=== PATIENT | female | born 1955 | race Caucasian/White ===

== ENCOUNTER → 2016-12-17 | Outpatient (CLI) | payer BC ==
[~2016-12-17] MED LIST: C250T; ESTR1TAB24; MULT1TAB63; NF-METANX; NFCORC1000; OMG1KC; THYR15TA PO
--- OUTSIDE RECORDS SUMMARY | 2016-12-17 10:48 | XMS REPORT | Continuity of Care Document ---
Author Author [facility] Organization [facility] Address Unknown Phone Unavailable Care Team Providers Care Moving Worker Name Role Phone JENNA BRUNSON MD PCP Insurance Providers Payer Name Policy Number Subscriber Name Relationship [facility] [id number] Wendy Abbott 19 Self / Same As Patient Advance Directives Directive Response Recorded Date/Time Advance Directives Yes 08/23/08 8:59am Organ Donor Yes 08/23/08 8:59am Problems No problem information available. Medications Current Home Medications Medication Dose Units Route Directions Days/Qty Instructions Start Date Thyroid,Pork 15 Mg 15 Mg Oral Daily 07/21/11 Estradiol 1 Mg 0.5 Mg 07/21/11 Past Home Medications Medication Directions Ordered Status Multivitamins 1 Ea Tablet, 08/23/08 Discontinued Calcium 1,000 Mg Capsule, 08/23/08 Discontinued Fish Oil 1,000 Mg Cap, 08/23/08 Discontinued Vitamin B Complex/Folic Acid 1 Ea Tablet, 08/23/08 Discontinued Ascorbic Acid 250 Mg Tab, 08/23/08 Discontinued Social History Social History Problem Response Recorded Date/Time Recent Foreign Travel N SEE [place] 02/11/2016 8:50am Hospital Discharge Instructions No hospital discharge instructions. Plan of Care Prescriptions See Medication Section Functional Status No functional status results. Allergies, Adverse Reactions, Alerts Allergen Type Severity Reaction Status Last Updated Tetanus Vaccines & Toxoid ([id number]) Allergy Mild Active 08/23/08 iodine ([id number]) Allergy Severe Active 08/23/08 FEATHER PILLOWS Allergy Mild Active 08/23/08 Immunizations No immunization records. Vital Signs No known vital signs results. Results Laboratory Results Test Name Result Units Flags Reference Collection Date/Time Result Date/ Time Comments White Blood Count 6.0 10^3/uL 4.3-11.0 02/11/2016 8:57am 02/11/2016 9: 06am Red Blood Count 4.63 10^6/uL 4.35-5.85 02/11/2016 8:57am 02/11/2016 9: 06am Hemoglobin 13.0 G/DL 11.5-16.0 02/11/2016 8:57am 02/11/2016 9:06am Hematocrit 40 % 35-52 02/11/2016 8:57am 02/11/2016 9:06am Mean Corpuscular Volume 87 FL 80-99 02/11/2016 8:57am 02/11/2016 9: 06am Mean Corpuscular Hemoglobin 28 PG 25-34 02/11/2016 8:57am 02/11/2016 9: 06am Mean Corpuscular Hemoglobin Concent 32 G/DL 32-36 02/11/2016 8:57am 9:06am Red Cell Distribution Width 14.1 % 10.0-14.5 02/11/2016 8:57am 2015 9:06am Platelet Count 294 10^3/uL 130-400 02/11/2016 8:57am 02/11/2016 9:06am Mean Platelet Volume 9.9 FL 7.4-10.4 02/11/2016 8:57am 02/11/2016 9: 06am Neutrophils (%) (Auto) 64 % 42-75 02/11/2016 8:57am 02/11/2016 9:06am Lymphocytes (%) (Auto) 28 % 12-44 02/11/2016 8:57am 02/11/2016 9:06am Monocytes (%) (Auto) 6 % 0-12 02/11/2016 8:57am 02/11/2016 9:06am Eosinophils (%) (Auto) 3 % 0-10 02/11/2016 8:57am 02/11/2016 9:06am Basophils (%) (Auto) 0 % 0-10 02/11/2016 8:57am 02/11/2016 9:06am Neutrophils # (Auto) 3.8 X 10^3 1.8-7.8 02/11/2016 8:57am 02/11/2016 9: 06am Lymphocytes # (Auto) 1.7 X 10^3 1.0-4.0 02/11/2016 8:57am 02/11/2016 9: 06am Monocytes # (Auto) 0.4 X 10^3 0.0-1.0 02/11/2016 8:57am 02/11/2016 9: 06am Eosinophils # (Auto) 0.2 10^3/uL 0.0-0.3 02/11/2016 8:57am 02/11/2016 9 :06am Basophils # (Auto) 0.0 10^3/uL 0.0-0.1 02/11/2016 8:57am 02/11/2016 9: 06am Sodium Level 139 MMOL/L 135-145 02/11/2016 8:57am 02/11/2016 9:51am Potassium Level 4.2 MMOL/L 3.6-5.0 02/11/2016 8:57am 02/11/2016 9:51am Chloride Level 104 MMOL/L 98-107 02/11/2016 8:57am 02/11/2016 9:51am Carbon Dioxide Level 27 MMOL/L 21-32 02/11/2016 8:57am 02/11/2016 9: 51am Anion Gap 8 MMOL/L 5-14 02/11/2016 8:57am 02/11/2016 9:51am Blood Urea Nitrogen 18 MG/DL 7-18 02/11/2016 8:57am 02/11/2016 9:51am Creatinine 0.71 MG/DL 0.60-1.30 02/11/2016 8:57am 02/11/2016 9:51am BUN/Creatinine Ratio 25 02/11/2016 8:57am 02/11/2016 9:51am Estimat Glomerular Filtration Rate > 60 02/11/2016 8:57am 2015 9:51am GFR INTERPRETIVE DATA UNITS FOR ESTIMATED GFR (eGFR): mL/min/1.73 M2 REFERENCE RANGE FOR ESTIMATED GFR (eGFR) eGFR NORMAL eGFR >60 MODERATELY DECREASED eGFR 30-59 SEVERLY DECREASED eGFR 15-29 KIDNEY FAILURE <15 (OR DIALYSIS) Glucose Level 87 MG/DL 70-105 02/11/2016 8:57am 02/11/2016 9:51am Calcium Level 9.4 MG/DL 8.5-10.1 02/11/2016 8:57am 02/11/2016 9:51am Total Bilirubin 0.3 MG/DL 0.1-1.0 02/11/2016 8:57am 02/11/2016 9:51am Alkaline Phosphatase 76 U/L 40-136 02/11/2016 8:57am 02/11/2016 9:51am Aspartate Amino Transf (AST/SGOT) 17 U/L 5-34 02/11/2016 8:57am 2015 9:51am Alanine Aminotransferase (ALT/SGPT) 14 U/L 0-55 02/11/2016 8:57am 02/10 9:51am Total Protein 7.3 G/DL 6.4-8.2 02/11/2016 8:57am 02/11/2016 9:51am Albumin 4.2 G/DL 3.2-4.5 02/11/2016 8:57am 02/11/2016 9:51am Thyroid Stimulating Hormone (TSH) 3.18 UIU/ML 0.35-4.94 02/11/2016 8: 57am 02/11/2016 10:17am Procedures No known history of procedures. Encounters Encounter Location Arrival/Admit Date Discharge/Depart Date Attending Provider Discharged Recurring [facility] 02/11/16 8:51am 11:59pm SRINIVAS WYMAN MD
--- NOTE | 2016-12-17 17:10 | Diagnostic Imaging Report ---
PROCEDURE: US thyroid. TECHNIQUE: Multiple real-time grayscale images were obtained of the thyroid in various projections. INDICATION: Thyromegaly. History of Darnell thyroiditis. FINDINGS: The right thyroid lobe is 5.5 x 2.1 x 1.8 cm. The left lobe is 5.4 x 1.8 x 1.8 cm. The thyroid parenchyma is heterogenous with increased vascularity seen. No focal underlying mass is noted. IMPRESSION: Hypervascular heterogenous enlarged thyroid gland with no discrete focal lesion, compatible with thyroiditis. Dictated by: Dictated on workstation # [id number]
== END ==
LOC: RAD 10:45
PROVIDERS: ATTEND Family Medicine
DX: E01.0 Iodine-deficiency related diffuse (endemic) goiter (principal); E06.3 Autoimmune thyroiditis
CPT/HCPCS: 76536

== ENCOUNTER 2017-02-09 08:34 | Outpatient (RCR) | payer BC ==
--- OUTSIDE RECORDS SUMMARY | 2017-02-09 08:38 | XMS REPORT | Continuity of Care Document ---
Author Author [facility] Organization [facility] Address Unknown Phone Unavailable Care Team Providers Care Ironer Sock Name Role Phone JENNA BRUNSON MD PCP Insurance Providers Payer Name Policy Number Subscriber Name Relationship [facility] [id number] Wendy Abbott 19 Self / Same As [...] Status Last Updated Tetanus Vaccines & Toxoid ([id number]) Allergy Mild Active 08/23/08 iodine ([id number]) Allergy Severe Active 08/23/08 FEATHER PILLOWS Allergy [...] Discharge/Depart Date Attending Provider Discharged Recurring [facility] 02/11/16 8:51am 11:59pm SRINIVAS WYMAN MD
[2017-02-09 08:53] LABS: BASOPHILS % (AUTO) 1 % (0-10); EOSINOPHILS # (AUTO) 0.2 10^3/uL (0.0-0.3); EOSINOPHILS % (AUTO) 3 % (0-10); LYMPHOCYTES # (AUTO) 1.8 X 10^3 (1.0-4.0); LYMPHOCYTES % (AUTO) 28 % (12-44); MEAN CORPUSCULAR HEMOGLOBIN 28 PG (25-34); MEAN CORPUSCULAR HGB CONC 32 G/DL (32-36); MEAN CORPUSCULAR VOLUME 88 FL (80-99); MONOCYTES # (AUTO) 0.5 X 10^3 (0.0-1.0); MONOCYTES % (AUTO) 7 % (0-12); NEUTROPHILS # (AUTO) 4.2 X 10^3 (1.8-7.8); NEUTROPHILS % (AUTO) 63 % (42-75); PLATELET COUNT 287 10^3/uL (130-400); RED BLOOD COUNT 4.68 10^6/uL (4.35-5.85); RED CELL DISTRIBUTION WIDTH 14.8 % (10.0-14.5); WHITE BLOOD COUNT 6.6 10^3/uL (4.3-11.0)
[2017-02-09 09:28] LABS: ALANINE AMINOTRANSFERASE 15 U/L (0-55); ANION GAP 10 MMOL/L (5-14); ASPARTATE AMINO TRANSFERASE 20 U/L (5-34); BILIRUBIN,TOTAL 0.4 MG/DL (0.1-1.0); BLOOD UREA NITROGEN 15 MG/DL (7-18); BUN/CREATININE RATIO 19; CALCIUM 9.4 MG/DL (8.5-10.1); CARBON DIOXIDE 26 MMOL/L (21-32); CHLORIDE 105 MMOL/L (98-107); GFR ESTIMATED > 60; GLUCOSE 94 MG/DL (70-105); POTASSIUM 4.8 MMOL/L (3.6-5.0); SODIUM 141 MMOL/L (135-145); TOTAL PROTEIN 7.1 G/DL (6.4-8.2)
[2017-02-09 09:52] LABS: THYROID STIMULATING HORMONE 5.62 UIU/ML (0.35-4.94)
== END 2017-05-10 | disposition home or self-care (01) ==
LOC: ONC 08:34
PROVIDERS: ATTEND Internal Medicine Hematology & Oncology
DX: Z08 Encounter for follow-up examination after completed treatment for malignant neoplasm (principal); Z85.43 Personal history of malignant neoplasm of ovary; E06.3 Autoimmune thyroiditis; Z90.710 Acquired absence of both cervix and uterus; Z79.899 Other long term (current) drug therapy
CPT/HCPCS: 36415; 80053; 84443; 85025; 86304; 99213

== ENCOUNTER → 2017-07-16 | Outpatient (CLI) | payer BC ==
--- NOTE | 2017-07-16 19:56 | Diagnostic Imaging Report ---
INDICATION: Screening for osteoporosis. EXAMINATION: DEXA scan. COMPARISON: This study was compared to the prior exam of 05/10/09. FINDINGS: The bone mineral density of the hips and spine was measured. The T-score for the spine is -1.6. On the prior exam the T-score was -1.9. The T-score for the left hip is -1.8 and for the right hip -2.1. On the previous study the respective T-scores were -1.6 and -1.7. IMPRESSION: There has been a decrease in the bone mineral density of the hips in the interval since the prior exam but there has been a slight increase in the bone mineral density of the spine. All of the T-score values remain within the range of osteopenia, although the T-score for the right hip does suggest severe osteopenia. Dictated by: Dictated on workstation # [id number]
== END ==
LOC: RAD 10:45
PROVIDERS: ATTEND Internal Medicine Endocrinology, Diabetes & Metabolism
DX: M85.89 Other specified disorders of bone density and structure, multiple sites (principal)
CPT/HCPCS: 77080

== ENCOUNTER → 2017-08-27 | Outpatient (CLI) | payer BC ==
--- NOTE | 2017-08-27 17:44 | Diagnostic Imaging Report ---
EXAMINATION: Bilateral digital screening mammogram with CAD. The current study was also evaluated with a Computer Aided Detection (CAD) system. INDICATION: Screening. No current complaints stated on the questionnaire. COMPARISON: 08/26/16. FINDINGS: The breasts are composed of scattered fibroglandular densities. There are occasional benign-appearing calcifications seen. Allowing for technique and positional differences, no suspicious change is seen. IMPRESSION: No significant change. ACR BI-RADS Category 2: Benign findings. Result letter will be mailed to the patient. Note: At least 10% of breast cancer is not imaged by mammography. Dictated by: Dictated on workstation # [id number]
== END ==
LOC: RAD 08:52
PROVIDERS: ATTEND Nurse Practitioner Family
DX: Z12.31 Encounter for screening mammogram for malignant neoplasm of breast (principal)
CPT/HCPCS: 77067

== ENCOUNTER 2017-09-15 09:52 | Outpatient (RCR) | payer BC ==
[2017-09-15 10:23] LABS: BASOPHILS % (AUTO) 0 % (0-10); EOSINOPHILS # (AUTO) 0.2 10^3/uL (0.0-0.3); EOSINOPHILS % (AUTO) 3 % (0-10); HEMATOCRIT 42 % (35-52); HEMOGLOBIN 13.4 G/DL (11.5-16.0); LYMPHOCYTES # (AUTO) 2.1 X 10^3 (1.0-4.0); LYMPHOCYTES % (AUTO) 29 % (12-44); MEAN CORPUSCULAR HEMOGLOBIN 29 PG (25-34); MEAN CORPUSCULAR HGB CONC 32 G/DL (32-36); MEAN CORPUSCULAR VOLUME 90 FL (80-99); MEAN PLATELET VOLUME 10.2 FL (7.4-10.4); MONOCYTES # (AUTO) 0.5 X 10^3 (0.0-1.0); MONOCYTES % (AUTO) 6 % (0-12); NEUTROPHILS # (AUTO) 4.5 X 10^3 (1.8-7.8); NEUTROPHILS % (AUTO) 62 % (42-75); PLATELET COUNT 275 10^3/uL (130-400); RED CELL DISTRIBUTION WIDTH 13.8 % (10.0-14.5); WHITE BLOOD COUNT 7.3 10^3/uL (4.3-11.0)
[2017-09-15 10:42] LABS: ALANINE AMINOTRANSFERASE 14 U/L (0-55); ALBUMIN 4.2 GM/DL (3.2-4.5); ALKALINE PHOSPHATASE 81 U/L (40-136); BILIRUBIN,TOTAL 0.5 MG/DL (0.1-1.0); BUN/CREATININE RATIO 20; CALCIUM 9.7 MG/DL (8.5-10.1); CARBON DIOXIDE 28 MMOL/L (21-32); CHLORIDE 103 MMOL/L (98-107); CREATININE SERUM 0.76 MG/DL (0.60-1.30); GFR ESTIMATED > 60; GLUCOSE 93 MG/DL (70-105); POTASSIUM 4.7 MMOL/L (3.6-5.0); SODIUM 139 MMOL/L (135-145); TOTAL PROTEIN 7.8 GM/DL (6.4-8.2)
== END 2017-12-14 | disposition home or self-care (01) ==
LOC: ONC 09:52
PROVIDERS: ATTEND Internal Medicine Hematology & Oncology
DX: Z08 Encounter for follow-up examination after completed treatment for malignant neoplasm (principal); Z85.43 Personal history of malignant neoplasm of ovary; E06.3 Autoimmune thyroiditis; Z90.710 Acquired absence of both cervix and uterus; Z79.899 Other long term (current) drug therapy
CPT/HCPCS: 36415; 80053; 84443; 85025; 86304; 99213

== ENCOUNTER → 2018-09-07 | Outpatient (CLI) | payer BC ==
--- NOTE | 2018-09-07 14:12 | Diagnostic Imaging Report ---
INDICATION: Screening. The current study was also evaluated with a Computer Aided Detection (CAD) system. 3-D tomosynthesis was also performed and reviewed. Comparison made with prior examination from 08/27/2017 back through 07/09/2012. FINDINGS: There are scattered fibroglandular densities bilaterally. There is no dominant mass, spiculated lesion or suspicious calcification identified. The skin, nipples and axilla are unremarkable. IMPRESSION: Category one negative. ACR BI-RADS Category 1: Negative. Result letter will be mailed to the patient. Note: At least 10% of breast cancer is not imaged by mammography. Dictated by: Dictated on workstation # [id number]
== END ==
LOC: RAD 12:58
PROVIDERS: ATTEND Family Medicine
DX: Z12.31 Encounter for screening mammogram for malignant neoplasm of breast (principal)
CPT/HCPCS: 77067

== ENCOUNTER → 2019-07-21 | Outpatient (CLI) | payer BC ==
--- NOTE | 2019-07-21 09:58 | Diagnostic Imaging Report ---
INDICATION: Postmenopausal screening for osteoporosis. COMPARISON: 07/16/2017 FINDINGS: AP Spine L1-L4: [BMD (g/cm2): 0.890] [T-Score: 2.6] [Z-Score: -1.5] [BMD Previous: 1.013] [BMD % Change: -12.1] LT Hip Neck: [BMD (g/cm2): 0.698] [T-Score: -2.4] [Z-Score: -1.3] LT Hip Total: [BMD (g/cm2):0.772] [T-Score:-1.9] [Z-Score: -1.1] [BMD Previous: 0.778] [BMD % Change: -0.8] RT Hip Neck: [BMD (g/cm2):0.708] [T-Score:-2.4] [Z-Score:-1.2] RT Hip Total: [BMD (g/cm2):0.770] [T-score:-1.9] [Z-Score:-1.1] [BMD Previous:0.746] [BMD % Change:3.2] *Indicates significant change from prior examination based on 95% confidence level. World Health Organization criteria for BMD interpretation classify patients as Normal (T-score at or above -1.0), Osteopenic (T-score between -1.0 and -2.5) or Osteoporotic (T-score at or below -2.5). LIMITATIONS AND MODIFICATION: None. FRACTURE RISK (FRAX SCORE): The ten year probability of (%): Major Osteoporotic Fracture: [12.2] Hip Fracture: [2.3] IMPRESSION: 1. Osteopenia (Low bone mass). 2. No significant change in bone mineral density since prior examination. 3. See below National Osteoporosis Foundation guidelines on when to potentially initiate pharmacologic therapy. Based on the National Osteoporosis Foundation Guidelines, pharmacologic treatment should be initiated in any of the following, unless clinical conditions suggest otherwise: * Any patient with prior fragility fracture of the hip or vertebrae. A spine fracture indicates 5X risk for subsequent spine fracture and 2X risk for subsequent hip fracture. * Osteoporosis (T-score <-2.5). * Postmenopausal women and men age 50 and older with low bone mass/osteopenia (T-score between -1.0 and -2.5) by DXA and 10-year major osteoporotic fracture greater than 20% or a 10-year probability of hip fracture greater than 3%. These fracture risks are supplied above in the FRAX score, if applicable. * Clinician judgement and/or patient preferences may indicate treatment for people with 10-year fracture probabilities above or below these levels. Dictated by: Dictated on workstation # [id number]
== END ==
LOC: RAD 08:44
PROVIDERS: ATTEND Internal Medicine Endocrinology, Diabetes & Metabolism
DX: Z13.820 Encounter for screening for osteoporosis (principal); M85.89 Other specified disorders of bone density and structure, multiple sites; Z78.0 Asymptomatic menopausal state
CPT/HCPCS: 77080

== ENCOUNTER → 2019-09-19 | Outpatient (CLI) | payer BC ==
--- NOTE | 2019-09-19 10:53 | Diagnostic Imaging Report ---
INDICATION: Routine screening. COMPARISON: 09/07/2018 and 08/27/2017. TECHNIQUE: 2D and 3D bilateral screening mammography was performed with CAD. FINDINGS: Scattered fibroglandular densities are identified bilaterally. No mass is identified. No malignant appearing microcalcifications are seen. The axillae are unremarkable. IMPRESSION: No mammographic features suspicious for malignancy are identified. ACR BI-RADS Category 1: Negative. Result letter will be mailed to the patient. Note: At least 10% of breast cancer is not imaged by mammography. Dictated by: Dictated on workstation # [id number]
== END ==
LOC: RAD 08:36
PROVIDERS: ATTEND Nurse Practitioner Family
DX: Z12.31 Encounter for screening mammogram for malignant neoplasm of breast (principal)
CPT/HCPCS: 77067

== ENCOUNTER 2019-09-26 13:08 | Outpatient (RCR) | payer BC ==
[2019-09-26 13:27] LABS: BASOPHILS % (AUTO) 0 % (0-10); EOSINOPHILS # (AUTO) 0.1 10^3/uL (0.0-0.3); EOSINOPHILS % (AUTO) 1 % (0-10); HEMATOCRIT 43 % (35-52); HEMOGLOBIN 13.3 G/DL (11.5-16.0); LYMPHOCYTES # (AUTO) 2.3 X 10^3 (1.0-4.0); LYMPHOCYTES % (AUTO) 32 % (12-44); MEAN CORPUSCULAR HEMOGLOBIN 28 PG (25-34); MEAN CORPUSCULAR HGB CONC 31 G/DL (32-36); MEAN CORPUSCULAR VOLUME 89 FL (80-99); MEAN PLATELET VOLUME 9.9 FL (7.4-10.4); MONOCYTES # (AUTO) 0.4 X 10^3 (0.0-1.0); MONOCYTES % (AUTO) 5 % (0-12); NEUTROPHILS # (AUTO) 4.5 X 10^3 (1.8-7.8); NEUTROPHILS % (AUTO) 62 % (42-75); PLATELET COUNT 275 10^3/uL (130-400); RED CELL DISTRIBUTION WIDTH 13.7 % (10.0-14.5); WHITE BLOOD COUNT 7.2 10^3/uL (4.3-11.0)
[2019-09-26 13:53] LABS: ALANINE AMINOTRANSFERASE 17 U/L (0-55); ALBUMIN 4.2 GM/DL (3.2-4.5); ALKALINE PHOSPHATASE 73 U/L (40-136); BILIRUBIN,TOTAL 0.3 MG/DL (0.1-1.0); BUN/CREATININE RATIO 14; CALCIUM 9.7 MG/DL (8.5-10.1); CARBON DIOXIDE 26 MMOL/L (21-32); CHLORIDE 101 MMOL/L (98-107); GFR ESTIMATED > 60; GLUCOSE 92 MG/DL (70-105); POTASSIUM 4.6 MMOL/L (3.6-5.0); SODIUM 138 MMOL/L (135-145); TOTAL PROTEIN 7.3 GM/DL (6.4-8.2)
== END 2019-12-25 | disposition home or self-care (01) ==
LOC: ONC 13:08
PROVIDERS: ATTEND Internal Medicine Hematology & Oncology
DX: C56.2 Malignant neoplasm of left ovary (principal); E06.3 Autoimmune thyroiditis; N87.9 Dysplasia of cervix uteri, unspecified; E66.9 Obesity, unspecified; Z90.710 Acquired absence of both cervix and uterus
CPT/HCPCS: 36415; 80053; 85025; 86304; 99213

== ENCOUNTER 2020-04-30 13:31 | Outpatient (CLI) | payer BC ==
[~2020-04-30] VITALS: Ht 162.6 cm; Wt 90.0 kg
[2020-04-30] MEDS ORDERED: CALC-250 PO (14:01)
[2020-04-30] MEDS ORDERED: CALC600T12 PO (14:01)
[2020-04-30] MEDS ORDERED: MV-M1TAB57 PO (14:01)
[2020-04-30] MEDS ORDERED: CYAN500L3 SL (14:01)
[2020-04-30] MEDS ORDERED: LEVO88TA2 PO (14:01)
== END 2020-04-30 14:02 ==
LOC: PREOP 13:31
PROVIDERS: ATTEND Internal Medicine
DX: Z01.812 Encounter for preprocedural laboratory examination (principal); Z11.59 Encounter for screening for other viral diseases
CPT/HCPCS: 87635

== ENCOUNTER 2020-09-24 12:42 | Outpatient (RCR) | payer BC ==
[2020-09-24 13:04] LABS: BASOPHILS # (AUTO) 0.1 10^3/uL (0.0-0.1); BASOPHILS % (AUTO) 1 % (0-10); EOSINOPHILS # (AUTO) 0.2 10^3/uL (0.0-0.3); EOSINOPHILS % (AUTO) 2 % (0-10); HEMATOCRIT 45 % (35-52); HEMOGLOBIN 14.2 g/dL (11.5-16.0); LYMPHOCYTES # (AUTO) 2.3 10^3/uL (1.0-4.0); LYMPHOCYTES % (AUTO) 22 % (12-44); MEAN CORPUSCULAR HEMOGLOBIN 29 pg (25-34); MEAN CORPUSCULAR HGB CONC 32 g/dL (32-36); MEAN CORPUSCULAR VOLUME 92 fL (80-99); MEAN PLATELET VOLUME 9.9 fL (9.0-12.2); MONOCYTES # (AUTO) 0.4 10^3/uL (0.0-1.0); MONOCYTES % (AUTO) 4 % (0-12); NEUTROPHILS # (AUTO) 7.5 10^3/uL (1.8-7.8); NEUTROPHILS % (AUTO) 71 % (42-75); PLATELET COUNT 293 10^3/uL (130-400); WHITE BLOOD COUNT 10.5 10^3/uL (4.3-11.0)
[2020-09-24 13:27] LABS: ALANINE AMINOTRANSFERASE 12 U/L (0-55); ALBUMIN 4.3 GM/DL (3.2-4.5); ALKALINE PHOSPHATASE 75 U/L (40-136); BILIRUBIN,TOTAL 0.4 MG/DL (0.1-1.0); BUN/CREATININE RATIO 19; CALCIUM 9.8 MG/DL (8.5-10.1); CARBON DIOXIDE 27 MMOL/L (21-32); CHLORIDE 103 MMOL/L (98-107); CREATININE SERUM 0.81 MG/DL (0.60-1.30); GFR ESTIMATED > 60; GLUCOSE 133 MG/DL (70-105); POTASSIUM 4.4 MMOL/L (3.6-5.0); SODIUM 140 MMOL/L (135-145); TOTAL PROTEIN 7.7 GM/DL (6.4-8.2)
== END 2020-12-23 | disposition still patient (30) ==
LOC: ONC 12:42
PROVIDERS: ATTEND Internal Medicine Hematology & Oncology
DX: C56.2 Malignant neoplasm of left ovary (principal); E06.3 Autoimmune thyroiditis; N87.9 Dysplasia of cervix uteri, unspecified; N81.6 Rectocele; E66.9 Obesity, unspecified; Z90.710 Acquired absence of both cervix and uterus; Z98.51 Tubal ligation status; Z90.89 Acquired absence of other organs; K08.409 Partial loss of teeth, unspecified cause, unspecified class; Z98.890 Other specified postprocedural states
CPT/HCPCS: 80053; 85025; 86304; G0463; 99213

== ENCOUNTER → 2020-09-24 | Outpatient (CLI) | payer BC ==
[~2020-09-24] MED LIST changes: +CALC-250 PO; +CLC600T PO; +CYAN500L3 SL; +LEVO88TA2 PO; +MV-M1TAB57 PO
--- NOTE | 2020-09-24 12:38 | Diagnostic Imaging Report ---
INDICATION: Routine screening. Comparison is made with prior mammogram 09/19/2019 and 09/07/2018. 2-D and 3-D bilateral screening mammography was performed with CAD. Scattered fibroglandular densities are identified bilaterally. The parenchymal pattern is stable. No mass or malignant appearing microcalcifications are seen. Axillae are unremarkable. IMPRESSION: BI-RADS Category 1 No mammographic features suspicious for malignancy are identified. ACR BI-RADS Category 1: Negative. Result letter will be mailed to the patient. Note: At least 10% of breast cancer is not imaged by mammography. Dictated by: Dictated on workstation # [id number]
== END ==
LOC: RAD 10:56
PROVIDERS: ATTEND Nurse Practitioner Family
DX: Z12.31 Encounter for screening mammogram for malignant neoplasm of breast (principal)
CPT/HCPCS: 77063; 77067

== ENCOUNTER 2021-07-26 15:56 | Outpatient (RCR) | payer BC ==
[~2021-07-26 15:56] MED LIST changes: +CALC600T91 PO; -CLC600T PO
== END 2021-08-26 08:43 | disposition home or self-care (01) ==
PROVIDERS: ATTEND Family Medicine
DX: N81.6 Rectocele (principal); N81.10 Cystocele, unspecified; E03.9 Hypothyroidism, unspecified; Z85.43 Personal history of malignant neoplasm of ovary

== ENCOUNTER → 2021-10-22 | Outpatient (CLI) | payer BC ==
--- NOTE | 2021-10-22 15:50 | Diagnostic Imaging Report ---
INDICATION: Routine screening. COMPARISON: 09/24/2020 and 09/19/2019. TECHNIQUE: 2D and 3D bilateral screening mammography was performed with CAD. FINDINGS: Scattered fibroglandular densities are identified bilaterally. The parenchymal pattern is stable. No mass or malignant-appearing microcalcifications are seen. The axillae are unremarkable. IMPRESSION: No mammographic features suspicious for malignancy are identified. ACR BI-RADS Category 1: Negative. Result letter will be mailed to the patient. Note: At least 10% of breast cancer is not imaged by mammography. Dictated by: Dictated on workstation # [id number]
== END ==
LOC: RAD 12:45
PROVIDERS: ATTEND Nurse Practitioner Family
DX: Z12.31 Encounter for screening mammogram for malignant neoplasm of breast (principal)
CPT/HCPCS: 77063; 77067

== ENCOUNTER → 2021-10-22 | Outpatient (CLI) | payer BC ==
[2021-10-22 14:52] LABS: BASOPHILS # (AUTO) 0.1 10^3/uL (0.0-0.1); BASOPHILS % (AUTO) 1 % (0-10); EOSINOPHILS # (AUTO) 0.2 10^3/uL (0.0-0.3); EOSINOPHILS % (AUTO) 2 % (0-10); HEMATOCRIT 43 % (35-52); HEMOGLOBIN 13.9 g/dL (11.5-16.0); LYMPHOCYTES # (AUTO) 2.4 10^3/uL (1.0-4.0); LYMPHOCYTES % (AUTO) 26 % (12-44); MEAN CORPUSCULAR HEMOGLOBIN 29 pg (25-34); MEAN CORPUSCULAR HGB CONC 32 g/dL (32-36); MEAN CORPUSCULAR VOLUME 91 fL (80-99); MONOCYTES # (AUTO) 0.5 10^3/uL (0.0-1.0); MONOCYTES % (AUTO) 6 % (0-12); NEUTROPHILS # (AUTO) 6.1 10^3/uL (1.8-7.8); NEUTROPHILS % (AUTO) 66 % (42-75); PLATELET COUNT 292 10^3/uL (130-400); WHITE BLOOD COUNT 9.3 10^3/uL (4.3-11.0)
[2021-10-22 15:11] LABS: ALBUMIN 4.1 GM/DL (3.2-4.5); BILIRUBIN,TOTAL 0.4 MG/DL (0.1-1.0); CALCIUM 9.9 MG/DL (8.5-10.1); CREATININE SERUM 0.78 MG/DL (0.60-1.30); POTASSIUM 4.5 MMOL/L (3.6-5.0); TOTAL PROTEIN 7.5 GM/DL (6.4-8.2)
== END ==
LOC: ONC 14:40
PROVIDERS: ATTEND Internal Medicine Hematology & Oncology
DX: Z08 Encounter for follow-up examination after completed treatment for malignant neoplasm (principal); E03.9 Hypothyroidism, unspecified; Z85.43 Personal history of malignant neoplasm of ovary; Z90.710 Acquired absence of both cervix and uterus; Z90.79 Acquired absence of other genital organ(s); Z90.722 Acquired absence of ovaries, bilateral; Z79.899 Other long term (current) drug therapy; Z79.82 Long term (current) use of aspirin; J45.909 Unspecified asthma, uncomplicated; E66.9 Obesity, unspecified; Z68.32 Body mass index [BMI] 32.0-32.9, adult
CPT/HCPCS: 80053; 85025; G0463; 99213

== ENCOUNTER → 2022-10-28 | Outpatient (CLI) | payer BC ==
--- NOTE | 2022-10-29 14:12 | Diagnostic Imaging Report ---
INDICATION: 3D screening mammogram with CAD. CAD is utilized. The current study was also evaluated with a Computer Aided Detection (CAD) system. This study was compared to the prior exams of 10/22/2021, 09/24/2020 and 09/19/2019. At this time there are no current complaints. The breasts are predominantly fatty. In the interval since the prior exam a small group of microcalcifications has developed in the upper outer aspect of the left breast approximately 7 cm deep to the nipple. I would recommend that a compression/magnification view of these microcalcifications be obtained in the CC and true lateral projections for further study. The overall appearance of breasts has not changed significantly otherwise. There is no primary or secondary sign of malignancy noted. IMPRESSION: Additional mammographic views of the left breast would be recommended for further study. ACR category 0 ACR BI-RADS Category 0: Incomplete. (Needs additional imaging evaluation). Result letter will be mailed to the patient. Note: At least 10% of breast cancer is not imaged by mammography. Dictated by: Dictated on workstation # [id number]
== END ==
LOC: RAD 11:49
PROVIDERS: ATTEND Family Medicine
DX: Z12.31 Encounter for screening mammogram for malignant neoplasm of breast (principal)
CPT/HCPCS: 77063; 77067

== ENCOUNTER → 2022-11-05 | Outpatient (CLI) | payer BC ==
--- NOTE | 2022-11-05 14:21 | Diagnostic Imaging Report ---
Indication: Left breast calcifications. Patient presents for additional views. Correlation is made with screening study from 10/28/2022 and 10/22/2021. Unilateral left 2-D and 3-D diagnostic mammography was performed. This included magnification CC and ML views as well as conventional 90 degrees lateral views. Additional views show a cluster of microcalcifications in the upper and outer aspect of the left breast. These are somewhat pleomorphic. There are some linear calcifications. No associated soft tissue mass is identified. These are new since one year earlier. IMPRESSION: BI-RADS Category 4 Indeterminant new cluster microcalcifications upper outer left breast at anterior to mid depth. Tissue sampling is recommended. These would be amenable to stereotactic biopsy approach. ACR BI-RADS Category 4: Suspicious abnormality. Dictated by: Dictated on workstation # [id number]
== END ==
LOC: RAD 12:45
PROVIDERS: ATTEND Obstetrics & Gynecology
DX: R92.8 Other abnormal and inconclusive findings on diagnostic imaging of breast (principal); R92.1 Mammographic calcification found on diagnostic imaging of breast
CPT/HCPCS: 77065; G0279

== ENCOUNTER → 2022-12-05 | Outpatient (CLI) | payer BC ==
[~2022-12-05] VITALS: Ht 162.6 cm; Wt 88.6 kg
[~2022-12-05] MED LIST changes: +LIDOCAINE 1% INJ 30 ML (XYLOCAINE) VIAL INJ ONE; +LIDOCAINE 1% INJ 30 ML (XYLOCAINE) VIAL ONE
--- NOTE | 2022-12-05 14:13 | Diagnostic Imaging Report ---
INDICATION: Left breast calcifications. PROCEDURE: The patient presents for a stereotactic biopsy. The patient was brought to the stereotactic suite, placed in a chair in a sitting upright position. The left breast was positioned craniocaudal. The cluster of microcalcifications in the upper and outer aspect of the left breast were stereotactically targeted. All images were viewed on a dedicated workstation. The superior left breast was then prepped and draped in the usual sterile fashion. Small amount of 1% lidocaine was utilized for local anesthesia. An 8-gauge vacuum-assisted needle was advanced from a craniocaudal approach and placed per stereotactic coordinates. A total of 4 core biopsies were obtained with the vacuum-assisted device. Specimen radiograph was obtained demonstrating numerous microcalcifications within all 4 samples but most numerous in sample number one. A marker clip was then deployed. Hemostasis was obtained using manual compression. Follow-up postprocedure 2-D CC and ML mammogram demonstrates the marker clip in the outer left breast. Patient tolerated the procedure well and left the department in stable condition. IMPRESSION: Successful stereotactic biopsy of left breast calcifications utilizing the vacuum-assisted device. Pathology results are currently pending. Dictated by: Dictated on workstation # [id number]
== END ==
LOC: RAD 12:45
PROVIDERS: ATTEND Family Medicine
DX: R92.1 Mammographic calcification found on diagnostic imaging of breast (principal)
CPT/HCPCS: 19081; A4648

== ENCOUNTER 2022-12-16 14:33 | Outpatient (RCR) | payer BC ==
[~2022-12-16 14:33] MED LIST changes: -LIDOCAINE 1% INJ 30 ML (XYLOCAINE) VIAL INJ ONE; -LIDOCAINE 1% INJ 30 ML (XYLOCAINE) VIAL ONE
== END 2022-12-30 | disposition home or self-care (01) ==
LOC: ONC 14:33
PROVIDERS: ATTEND Internal Medicine Hematology & Oncology
DX: C50.912 Malignant neoplasm of unspecified site of left female breast (principal); I95.9 Hypotension, unspecified; E66.9 Obesity, unspecified
CPT/HCPCS: 99204

== ENCOUNTER 2023-03-27 14:51 | Outpatient (RCR) | payer BC | END 2023-03-29 | disposition home or self-care (01) | LOC: ONC 14:51 | PROVIDERS: ATTEND Internal Medicine Hematology & Oncology | DX: N76.6 Ulceration of vulva (principal); I95.9 Hypotension, unspecified; E66.9 Obesity, unspecified | CPT/HCPCS: 77280; 77290; 77295; 77300; 77307; 77334; 77336; 77417; 99205 ==

== ENCOUNTER 2023-04-07 14:47 | Outpatient (RCR) | payer BC | END 2023-04-23 08:34 | disposition home or self-care (01) | LOC: ONC 14:47 | PROVIDERS: ATTEND Internal Medicine Hematology & Oncology | DX: Z51.0 Encounter for antineoplastic radiation therapy (principal); N76.6 Ulceration of vulva; I95.9 Hypotension, unspecified; E66.9 Obesity, unspecified | CPT/HCPCS: 77336; 77417 ==

== ENCOUNTER → 2023-04-28 | Outpatient (CLI) | payer BC ==
--- NOTE | 2023-04-28 17:00 | Diagnostic Imaging Report ---
INDICATION: Postmenopausal screening COMPARISON: 07/21/2019 FINDINGS: AP Spine L1-L4: [BMD (g/cm2): 0.962] [T-Score: -2.0] [Z-Score: -0.7] [BMD Previous: 0.890] [BMD % Change: 8.1*] LT Hip Neck: [BMD (g/cm2): 0.621] [T-Score: -3.0] [Z-Score: -1.7] LT Hip Total: [BMD (g/cm2):0.705] [T-Score:-2.4] [Z-Score: -1.4] [BMD Previous: 0.772] [BMD % Change: -8.7*] RT Hip Neck: [BMD (g/cm2):0.677] [T-Score:-2.6] [Z-Score:-1.3] RT Hip Total: [BMD (g/cm2):0.709] [T-score:-2.4] [Z-Score:-1.3] [BMD Previous:0.770] [BMD % Change:-7.9*] *Indicates significant change from prior examination based on 95% confidence level. World Health Organization criteria for BMD interpretation classify patients as Normal (T-score at or above -1.0), Osteopenic (T-score between -1.0 and -2.5) or Osteoporotic (T-score at or below -2.5). LIMITATIONS AND MODIFICATION: None. FRACTURE RISK (FRAX SCORE): The ten year probability of (%): Major Osteoporotic Fracture: [17.1] Hip Fracture: [5.1] IMPRESSION: 1. Osteopenia (Low bone mass). 2. there are no significant interval change 3. See below National Osteoporosis Foundation guidelines on when to potentially initiate pharmacologic therapy. Based on the National Osteoporosis Foundation Guidelines, pharmacologic treatment should be initiated in any of the following, unless clinical conditions suggest otherwise: * Any patient with prior fragility fracture of the hip or vertebrae. A spine fracture indicates 5X risk for subsequent spine fracture and 2X risk for subsequent hip fracture. * Osteoporosis (T-score <-2.5). * Postmenopausal women and men age 50 and older with low bone mass/osteopenia (T-score between -1.0 and -2.5) by DXA and 10-year major osteoporotic fracture greater than 20% or a 10-year probability of hip fracture greater than 3%. These fracture risks are supplied above in the FRAX score, if applicable. * Clinician judgement and/or patient preferences may indicate treatment for people with 10-year fracture probabilities above or below these levels. Dictated by: Dictated on workstation # [id number]
== END ==
LOC: RAD 13:35
PROVIDERS: ATTEND Internal Medicine Hematology & Oncology
DX: Z13.820 Encounter for screening for osteoporosis (principal); M85.80 Other specified disorders of bone density and structure, unspecified site; C50.412 Malignant neoplasm of upper-outer quadrant of left female breast; Z17.0 Estrogen receptor positive status [ER+]; Z79.811 Long term (current) use of aromatase inhibitors
CPT/HCPCS: 77080

== ENCOUNTER 2023-05-21 10:48 | Outpatient (RCR) | payer BC | END 2023-05-29 | disposition home or self-care (01) | LOC: ONC 10:48 | PROVIDERS: ATTEND Internal Medicine Hematology & Oncology | DX: C56.9 Malignant neoplasm of unspecified ovary (principal); N76.6 Ulceration of vulva; I95.9 Hypotension, unspecified; E66.9 Obesity, unspecified; J45.909 Unspecified asthma, uncomplicated | CPT/HCPCS: 99213 ==

== ENCOUNTER → 2023-05-21 | Outpatient (CLI) | payer BC ==
[~2023-05-21] VITALS: Ht 160 cm; Wt 74.8 kg
[~2023-05-21] MED LIST changes: +LETR2.5T6 PO
== END | disposition home or self-care (01) ==
LOC: PREOP 07:34
PROVIDERS: ATTEND Internal Medicine
DX: Z01.818 Encounter for other preprocedural examination (principal)

== ENCOUNTER 2023-05-22 07:25 | Day surgery (SDC) | payer BC ==
--- NOTE | 2023-05-21 08:14 | HISTORY AND PHYSICAL ---
COLONOSCOPY HISTORY AND PHYSICAL HISTORY OF PRESENT ILLNESS: The patient is a 68-year-old white female referred by Dr. Gwen Deleon for diagnostic colonoscopy. It has a family history for colon cancer and personal history for colon polyps. Index case is her father diagnosed at the age of 70 and at the age of 81 secondary to colon cancer. Mother has had she believes it had a few colon polyps removed at the age of 86. She last underwent colonoscopy 3 years ago, at which time she had 2 polyps removed, one from the transverse colon, one from the proximal rectum. In the interim, she was diagnosed with breast cancer earlier this year, she underwent left lumpectomy and radiation therapy, was reportedly non-negative. She has a previous history of ovarian cancer diagnosed in 2007. There has been no evidence for recurrence. PAST SURGICAL HISTORY: Significant for TAHBSO for ovarian cancer in 2007, she had tonsillectomy and adenoidectomy and wisdom tooth extraction and then early this year, believe in January lumpectomy, a left-sided for breast cancer. PAST MEDICAL HISTORY: Other than the above, Significant for Darnell's thyroiditis, on thyroid replacement. SOCIAL HISTORY: She is a [employer] teacher, but report [id number] smoking history, but quit in 1981. Occasional small volume alcohol intake. FAMILY HISTORY: As per HPI. REVIEW OF SYSTEMS: CONSTITUTIONAL: Denies night sweats, chills, fever, change in weight. PULMONARY: Denies cough, wheezing or shortness of breath. CARDIOVASCULAR: Denies chest discomfort, orthopnea, PND, pedal edema. GASTROINTESTINAL: She has had no rectal bleeding. Denies change in bowel habit or abdominal pain. PHYSICAL EXAMINATION: GENERAL: Reveals a pleasant white female, appeared to be in no acute distress. VITAL SIGNS: Blood pressure 120/78, weight 165 pounds, this down 33 pounds from her last office weight here 3 years ago. HEENT: Unremarkable. Sclerae nonicteric. CHEST: Clear to auscultation. CARDIOVASCULAR: Reveals regular rate and rhythm without murmur, S3, or S4. ABDOMEN: Soft, supple without mass, organomegaly, or tenderness. EXTREMITIES: Revealed no cyanosis, clubbing or edema. ASSESSMENT AND PLAN: The patient is undergoing surveillance colonoscopy deemed to be at high risk due to family history for colon cancer as noted above as well as personal history of ovarian cancer and now breast cancer with past history of colon polyps. Prep instructions were given and questions were answered. I thank you for the referral of this pleasant lady. Job ID: [id number] DocumentID: [id number] Dictated Date: 05/20/2023 11:46:17 Wooling Machine Operator Date: 05/20/2023 12:30:00 Dictated By: MAHI GEORGE MD
[~2023-05-22] VITALS: Ht 160 cm; Wt 74.8 kg
[2023-05-22] MEDS ORDERED: LACTATED RINGERS 1,000 ML IV STA (07:32)
[2023-05-22 07:44] VITALS: BP 114/60
[2023-05-22] MEDS ORDERED: MIDAZOLAM 2 MG/2 ML (VERSED) VIAL ONE (07:47)
[2023-05-22] MEDS ORDERED: PROPOFOL INJECTION 50 ML IV ONE (07:47)
--- NOTE | 2023-05-22 07:51 | Pre-Op Note & Conscious Sedat ---
Pre-Operative Progress Note Date H&P Reviewed: May 22, 2023 Time H&P Reviewed: 07:50 History & Physical: H&P Reviewed, Patient Examed, No changes noted Pre-Op Diagnosis: colon polyps and FH of colon cancer Moderate Sedation PreProcedure ASA Score 2 Airway Lungs Heart ASA score ASA 1: a normal healthy patient ASA 2: a patient with a mild systemic disease (mid diabetes, controlled hypertension, obesity ASA 3: a patient with a severe systemic disease that limits activity (angina, COPD, prior Myocardial infarction) ASA 4: a patient with an incapacitating disease that is a constant threat to life (CHF, renal failure) ASA 5: a moribund patient not expected to survive 24 hrs. (ruptured aneurysm) ASA 6: a declared brain- patient whose organs are being harvested. For emergent operations, add the letter E after the classification Mallampati Classification Grade 2 Sedation Plan Analgesia, Amnesia, Plan communicated to team members, Discussed options with patient/fam, Discussed risks with patient/fam The patient is an appropriate candidate to undergo the planned procedure, sedation, and anesthesia. The patient immediately re-assessed prior to indication. MAHI GEORGE MD May 22, 2023 07:51
[2023-05-22] MEDS ORDERED: ATROPINE INJ 0.4 MG/ML SDV ONE (08:10)
[2023-05-22 08:25] VITALS: BP 93/46
--- NOTE | 2023-05-22 08:27 | Progress Note-Post Operative ---
Post-Procedure Note Physician (s)/Fit Model (s) Physician MAHI GEORGE MD Pre-Procedure Diagnosis Pre-Procedure Diagnosis: colon polyps and FH of colon cancer Post-Procedure Diagnosis Post-operative diagnosis: Prior to undergoing colonoscopy digital rectal evaluation was performed. Anal suture tone was normal and the perianal reflexes intact. No abnormalities noted on digital inspection anal canal or distal rectal vault. The colonoscope was then inserted into the rectum and under direct vision advanced the cecum. The cecum was identified by identification of the ileocecal valve and cecal strap. Careful suction was made as the colonoscope was withdrawn. Quality the prep was good. Findings: There are no evidence for internal or external hemorrhoids and the rectum was unremarkable. Present mid sigmoid colon most extracolonic narrowing suggesting underlying adhesions with no luminal abnormalities being noted no evidence for diverticular disease. The descending colon splenic flexure transverse colon hepatic flexure ascending colon and cecum were unremarkable under good prep conditions. A/P 1. Probable extracolonic adhesions involving the mid sigmoid colon without significant obstruction this is an otherwise normal colonoscopy to cecum with no evidence for neoplasia or diverticular disease. Considering no neoplasia 3 years ago and today would advocate repeat surveillance colonoscopy in 5 years. CC: MAHI Villa MD, MD May 22, 2023 08:27
[2023-05-22 08:29] VITALS: BP 92/47
[2023-05-22 08:33] VITALS: BP 101/53
[2023-05-22 08:35] VITALS: BP 104/58
[2023-05-22 08:50] VITALS: BP 104/58
--- NOTE | 2023-05-22 09:56 | Anesthesia-General Post-Op ---
MAC Patient Condition Mental Status/LOC: Same as Preop Cardiovascular: Satisfactory Nausea/Vomiting: Absent Respiratory: Satisfactory Pain: Controlled Complications: Absent Post Op Complications Complications None Follow Up Care/Instructions Patient Instructions None needed. Anesthesiology Discharge Order Discharge Order Patient is doing well, no complaints, stable vital signs, no apparent adverse anesthesia problems. No complications reported per nursing. LEYLA HARDY CRNA May 22, 2023 09:56
== END 2023-05-22 09:08 | disposition home or self-care (01) ==
LOC: ENDO 07:25
PROVIDERS: ATTEND Internal Medicine
DX: Z12.11 Encounter for screening for malignant neoplasm of colon (principal); E06.3 Autoimmune thyroiditis; C50.919 Malignant neoplasm of unspecified site of unspecified female breast; Z80.0 Family history of malignant neoplasm of digestive organs; Z85.43 Personal history of malignant neoplasm of ovary; Z86.010 Personal history of colon polyps; Z87.891 Personal history of nicotine dependence; Z79.890 Hormone replacement therapy